=== PATIENT | female | born 1995 | race Caucasian/White ===

== ENCOUNTER 2018-09-29 14:28 | Outpatient (CLI) | payer OTHER ==
[2018-10-01 06:06] LABS: HEPATITIS A AB, IgM Negative (Negative); HEPATITIS B CORE AB, IgM Negative (Negative); HEPATITIS B SURFACE AG Negative (Negative)
[2018-10-01 08:15] LABS: RUBELLA AB, IgG 5.85 index (Immune >0.99); VARICELLA ZOSTER IgG 225 index (Immune >165)
== END 2018-09-29 21:12 | disposition home or self-care (01) ==
LOC: SLB 14:28
PROVIDERS: ATTEND Internal Medicine
DX: Z02.0 Encounter for examination for admission to educational institution (principal)
CPT/HCPCS: 36415; 86705; 86709; 86735; 86762; 86765; 86787; 87340